=== PATIENT | female | born 1970 | race Caucasian/White ===

== ENCOUNTER 2016-12-26 13:29 | Inpatient (IN) | payer OTHER ==
[~2016-12-26] VITALS: Ht 162.6 cm; Wt 74.2 kg
[~2016-12-26 13:29] MED LIST: AMBIEN CR12.5 MG PO; CLONAZEPAM1 MG PO; COLACE100 MG PO; CONCERTA36 MG PO; CYMBALTA60 MG PO; EXCEDRIN EXTRA1 EACH PO; NASONEX17 GM BOTH NARES; NEURONTIN800 MG PO; PROAIR HFA8.5 GM IH; TOPAMAX100 MG PO; TOPAMAX50 MG PO; ZUBSOLV 5.7-1.1 EACH SL; ZYRTEC10 M3 PO
[2016-12-26 14:39] LABS: EOSINOPHIL (%) 3.6 % (0-5); EOSINOPHIL COUNT 0.2 K/uL (0-0.3); HEMATOCRIT 36.8 % (36.0-46.0); IMMATURE GRANULOCYTE (%) 0.5 % (0.0-0.7); INSTRUMENT ABS NEUTROPHIL CT 2.1 K/uL; LYMPHOCYTE COUNT 3.1 K/uL (1.0-2.8); MCH 29.6 PG (29.0-34.0); MCHC 33.4 G/DL (30.0-36.0); MCV 88.7 FL (83-99); MEAN PLAT.VOLUME 10.6 uM^3 (9.5-12.4); MONOCYTE (%) 11.4 % (3-12); MONOCYTE COUNT 0.7 K/uL (0-0.8); NEUTROPHIL (%) 33.8 % (45-76); NEUTROPHIL COUNT 2.1 K/uL (1.8-6.4); PLATELET COUNT 159 K/uL (156-360); RBC DIS.WIDTH-CV 12.5 % (11.8-14.6); RBC DIS.WIDTH-SD 40.6 % (39-53); RED BLOOD COUNT 4.15 M/uL (3.80-5.20); WHITE BLOOD COUNT 6.1 K/uL (4.1-10.2)
[2016-12-26 14:47] LABS: CHLORIDE 107 mEq/L (99-109); POTASSIUM 3.6 mEq/L (3.7-5.4); SODIUM 144 mEq/L (136-147)
[2016-12-26 14:49] LABS: GLUCOSE 53 mg/dL (70-99)
[2016-12-26 14:51] LABS: ANION GAP 12 MEQ/L (2-14); TOTAL BILIRUBIN 0.5 mg/dL (0.0-1.0)
[2016-12-26 14:52] LABS: SERUM ETHYL ALCOHOL 108 mg/dL
[2016-12-26 14:53] LABS: GFR ESTIMATE (CALCULATED) > 59 mL/min/
[2016-12-26 14:54] LABS: ALKALINE PHOSPHATASE 77 IU/L (3-129)
[2016-12-26 14:55] LABS: UREA NITROGEN (BUN) 23 mg/dL (9-23)
[2016-12-26 14:56] LABS: SALICYLATE < 5.0 MG/DL (15-30)
[2016-12-26 15:03] LABS: QUANTITATIVE HCG < 4.0 MIU/ML
[2016-12-26 17:07] LABS: POINT-OF-CARE METER ID UU13113702
[2016-12-26 17:09] LABS: ADD MIUA? YES; BILIRUBIN NEGATIVE; BLOOD NEGATIVE; COLOR YELLOW ((YELLOW)); GLUCOSE (STRIP) NEGATIVE; KETONES 80; LEUKOCYTES TRACE; NITRITE NEGATIVE; PROTEIN (STRIP) 30; SPECIFIC GRAVITY 1.025 (1.000-1.030)
[2016-12-26 17:20] LABS: ADD MEDTOX COMMENT Y; AMPHETAMINE NEGATIVE (500 ng/mL); BARBITURATES NEGATIVE (200 ng/mL); BENZODIAZEPINES PRESUMPTIVE POSITIVE (150 ng/mL); COCAINE NEGATIVE (150 ng/mL); INTERNAL CONTROLS VALID? YES; METHADONE NEGATIVE (200 ng/mL); METHAMPHETAMINE NEGATIVE (500 ng/mL); OPIATES (MORPHINE) NEGATIVE (100 ng/mL); OXYCODONE NEGATIVE (100 ng/mL); PHENCYCLIDINE NEGATIVE (25 ng/mL); PROPOXYPHENE NEGATIVE (300 ng/mL); THC CANNABINOIDS NEGATIVE (50 ng/mL); TRICYCLIC ANTIDEPRESSANTS PRESUMPTIVE POSITIVE (300 ng/mL)
[2016-12-26 17:23] LABS: BACTERIA NONE SEEN /HPF; EPITHELIAL CELLS RARE /HPF; MUCUS TRACE /LPF; UCUL ADDED? NO
[2016-12-26 17:50] LABS: BENZODIAZEPINES, URINE SCREEN POSITIVE (200 ng/mL)
[2016-12-26 18:52] LABS: POINT-OF-CARE METER ID UU13113702
[2016-12-26 19:06] VITALS: BP 113/71
[2016-12-26 19:41] VITALS: BP 113/71
[2016-12-26] MEDS ORDERED: SUBOXONE 8 MG-1 EAC2 PO (20:51)
[2016-12-26] MEDS ORDERED: ZOLOFT100 MG PO (20:52)
[2016-12-26] MEDS ORDERED: RITALIN10 MG PO (20:53)
[2016-12-26] MEDS ORDERED: GABAPENTIN800 MG PO (20:53)
[2016-12-26] MEDS ORDERED: KLONOPIN1 MG PO (20:55)
[2016-12-27 07:51] VITALS: BP 109/59
[2016-12-27 15:45] VITALS: BP 110/55
[2016-12-28 07:58] VITALS: BP 116/57
[2016-12-28 15:26] VITALS: BP 97/58
[2016-12-29 07:24] VITALS: BP 105/53
[2016-12-29 15:32] VITALS: BP 96/50
[2016-12-30 07:33] VITALS: BP 99/56
[2016-12-30 16:28] VITALS: BP 108/61
[2016-12-31 07:57] VITALS: BP 107/51
[2016-12-31] MEDS ORDERED: SERTRALINE HCL100 MG PO (10:56)
[2016-12-31] MEDS ORDERED: TRIAMCINOLONE A30 GM TP (10:56)
[2016-12-31] MEDS ORDERED: RETIN-A 0.1%20 GM TP (10:56)
[2016-12-31] MEDS ORDERED: BUSPAR10 MG PO (10:56)
[2016-12-31] MEDS ORDERED: TRAZODONE HCL50 MG PO (10:56)
[2016-12-31] MEDS ORDERED: ZOLOFT100 MG PO (11:17)
== END 2016-12-31 12:58 | disposition home or self-care (01) | DRG 885 ==
LOC: EME 13:29 → EDOF 16:00 → 1WEST 16:00
PROVIDERS: Emergency Medicine; Psychiatry & Neurology Psychiatry
DX: F32.2 Major depressive disorder, single episode, severe without psychotic features (principal); F11.10 Opioid abuse, uncomplicated; Z72.89 Other problems related to lifestyle; R45.851 Suicidal ideations; E16.2 Hypoglycemia, unspecified; F17.200 Nicotine dependence, unspecified, uncomplicated
CPT/HCPCS: 80053; 81003; 82948; 84702; 84999; 85025; 87086; 90837; 97150 GO; 97165 GO; 99281; 99284; G0480; J0571; Q0177

== ENCOUNTER 2017-05-07 13:40 | Emergency (ER) | payer OTHER ==
[~2017-05-07] VITALS: Ht 165.1 cm; Wt 71.2 kg
[~2017-05-07 13:40] MED LIST changes: +BUSPAR10 MG PO; +GABAPENTIN800 MG PO; +KLONOPIN1 MG PO; +RETIN-A 0.1%20 GM TP; +RITALIN10 MG PO; +SERTRALINE HCL100 MG PO; +SUBOXONE 8 MG-1 EAC2 PO; +TRAZODONE HCL50 MG PO; +TRIAMCINOLONE A30 GM TP; +ZOLOFT100 MG PO
[2017-05-07] MEDS ORDERED: ERYTHROMYC1 APPLICAT LEFT EYE (14:54)
[2017-05-07 15:00] VITALS: BP 126/87
== END 2017-05-07 15:00 | disposition home or self-care (01) ==
LOC: EME 13:40
DX: B80 Enterobiasis (principal); H10.9 Unspecified conjunctivitis; S20.469A Insect bite (nonvenomous) of unspecified back wall of thorax, initial encounter; W57.XXXA Bitten or stung by nonvenomous insect and other nonvenomous arthropods, initial encounter; J45.909 Unspecified asthma, uncomplicated; F42.9 Obsessive-compulsive disorder, unspecified; F17.200 Nicotine dependence, unspecified, uncomplicated; Z88.1 Allergy status to other antibiotic agents
CPT/HCPCS: 99281; 99283

== ENCOUNTER 2017-05-21 17:14 | Emergency (ER) | payer OTHER ==
[~2017-05-21] VITALS: Ht 162.6 cm; Wt 70.2 kg
[~2017-05-21 17:14] MED LIST changes: +ERYTHROMYC1 APPLICAT LEFT EYE
[2017-05-21 17:53] LABS: HEMATOCRIT 37.3 % (36.0-46.0); MCH 29.3 PG (29.0-34.0); MCHC 33.5 G/DL (30.0-36.0); MCV 87.4 FL (83-99); MEAN PLAT.VOLUME 9.5 uM^3 (9.5-12.4); PLATELET COUNT 229 K/uL (156-360); RBC DIS.WIDTH-CV 12.8 % (11.8-14.6); RBC DIS.WIDTH-SD 39.7 % (39-53); RED BLOOD COUNT 4.27 M/uL (3.80-5.20); WHITE BLOOD COUNT 7.4 K/uL (4.1-10.2)
[2017-05-21 18:01] LABS: CHLORIDE 109 mEq/L (99-109); POTASSIUM 3.3 mEq/L (3.7-5.4); SODIUM 142 mEq/L (136-147)
[2017-05-21 18:03] LABS: GLUCOSE 84 mg/dL (70-99)
[2017-05-21 18:04] LABS: ANION GAP 12 MEQ/L (2-14)
[2017-05-21 18:06] LABS: SERUM ETHYL ALCOHOL 92 mg/dL
[2017-05-21 18:07] LABS: GFR ESTIMATE (CALCULATED) > 59 mL/min/
[2017-05-21 18:08] LABS: UREA NITROGEN (BUN) 8 mg/dL (9-23)
[2017-05-21 18:15] LABS: QUANTITATIVE HCG < 4.0 MIU/ML
[2017-05-22 01:33] LABS: THC CANNABINOIDS NEGATIVE (50 ng/mL)
[2017-05-22 01:34] LABS: ADD MEDTOX COMMENT Y; AMPHETAMINE NEGATIVE (500 ng/mL); BARBITURATES NEGATIVE (200 ng/mL); BENZODIAZEPINES PRESUMPTIVE POSITIVE (150 ng/mL); COCAINE NEGATIVE (150 ng/mL); INTERNAL CONTROLS VALID? YES; METHADONE NEGATIVE (200 ng/mL); METHAMPHETAMINE NEGATIVE (500 ng/mL); OPIATES (MORPHINE) NEGATIVE (100 ng/mL); OXYCODONE NEGATIVE (100 ng/mL); PHENCYCLIDINE NEGATIVE (25 ng/mL); PROPOXYPHENE NEGATIVE (300 ng/mL); TRICYCLIC ANTIDEPRESSANTS NEGATIVE (300 ng/mL)
[2017-05-22 02:48] LABS: BENZODIAZEPINES, URINE SCREEN POSITIVE (200 ng/mL)
[2017-05-22 11:53] VITALS: BP 101/65
== END 2017-05-22 11:59 ==
LOC: EME 17:14
DX: F31.4 Bipolar disorder, current episode depressed, severe, without psychotic features (principal); F19.10 Other psychoactive substance abuse, uncomplicated; R45.851 Suicidal ideations; F10.10 Alcohol abuse, uncomplicated; J45.909 Unspecified asthma, uncomplicated; Z91.5 Personal history of self-harm; Z85.44 Personal history of malignant neoplasm of other female genital organs; F17.200 Nicotine dependence, unspecified, uncomplicated; Z88.0 Allergy status to penicillin; Z88.8 Allergy status to other drugs, medicaments and biological substances
CPT/HCPCS: 80048; 84702; 84999; 85027; 90837; 99281; 99285; G0480; J2310

== ENCOUNTER 2017-06-27 09:05 | Emergency (ER) | payer OTHER ==
[~2017-06-27] VITALS: Ht 165.1 cm; Wt 67.1 kg
[2017-06-27 09:49] LABS: BASOPHIL (%) 0.8 % (0-1); EOSINOPHIL (%) 0.2 % (0-5); HEMATOCRIT 44.1 % (36.0-46.0); HEMOGLOBIN 14.8 G/DL (11.9-15.5); IMMATURE GRANULOCYTE (%) 0.2 % (0.0-0.7); LYMPHOCYTE (%) 41.8 % (15-42); LYMPHOCYTE COUNT 2.1 K/uL (1.0-2.8); MCHC 33.6 G/DL (30.0-36.0); MCV 86.5 FL (83-99); MONOCYTE (%) 4.8 % (3-12); MONOCYTE COUNT 0.2 K/uL (0-0.8); NEUTROPHIL (%) 52.2 % (45-76); NEUTROPHIL COUNT 2.6 K/uL (1.8-6.4); PLATELET COUNT 250 K/uL (156-360); RBC DIS.WIDTH-CV 13.1 % (11.8-14.6)
[2017-06-27 09:56] LABS: ALBUMIN 3.9 g/dL (3.2-4.8); CHLORIDE 101 mEq/L (99-109); POTASSIUM 3.7 mEq/L (3.7-5.4); SODIUM 140 mEq/L (136-147)
[2017-06-27 09:57] LABS: MAGNESIUM 2.1 mg/dL (1.3-2.7)
[2017-06-27 09:58] LABS: GLUCOSE 96 mg/dL (70-99)
[2017-06-27 09:59] LABS: TOTAL PROTEIN 6.7 g/dL (6.4-8.3)
[2017-06-27 10:00] LABS: TOTAL BILIRUBIN 0.3 mg/dL (0.0-1.0)
[2017-06-27 10:01] LABS: SERUM ETHYL ALCOHOL 256 mg/dL
[2017-06-27 10:02] LABS: CREATININE 0.6 mg/dL (0.6-1.3); GFR ESTIMATE (CALCULATED) > 59 mL/min/
[2017-06-27 10:03] LABS: ALKALINE PHOSPHATASE 106 IU/L (3-129)
[2017-06-27 10:04] LABS: AST (GOT) 33 IU/L (2-34); UREA NITROGEN (BUN) 15 mg/dL (9-23)
[2017-06-27 10:06] LABS: ACETAMINOPHEN (TYLENOL) < 10 mcg/mL (10-30); ALT (GPT) 20 IU/L (3-49); SALICYLATE < 5.0 MG/DL (15-30)
[2017-06-27 10:12] LABS: QUANTITATIVE HCG < 4.0 MIU/ML
[2017-06-27 11:10] LABS: PHENCYCLIDINE NEGATIVE (25 ng/mL); THC CANNABINOIDS NEGATIVE (50 ng/mL)
[2017-06-27 11:11] LABS: AMPHETAMINE NEGATIVE (500 ng/mL); BARBITURATES NEGATIVE (200 ng/mL); BENZODIAZEPINES NEGATIVE (150 ng/mL); BUPRENORPHINE NEGATIVE (10 ng/mL); COCAINE NEGATIVE (150 ng/mL); METHADONE NEGATIVE (200 ng/mL); METHAMPHETAMINE NEGATIVE (500 ng/mL); OPIATES (MORPHINE) NEGATIVE (100 ng/mL); OXYCODONE NEGATIVE (100 ng/mL); PROPOXYPHENE NEGATIVE (300 ng/mL); TRICYCLIC ANTIDEPRESSANTS NEGATIVE (300 ng/mL)
[2017-06-27] MEDS ORDERED: LIBRIUM25 MG PO (16:34)
[2017-06-27 16:56] VITALS: BP 129/62
== END 2017-06-27 17:37 | disposition home or self-care (01) ==
LOC: EME 09:05
PROVIDERS: Emergency Medicine
DX: F10.20 Alcohol dependence, uncomplicated (principal); Y90.8 Blood alcohol level of 240 mg/100 ml or more; F42.9 Obsessive-compulsive disorder, unspecified; J45.909 Unspecified asthma, uncomplicated; F17.200 Nicotine dependence, unspecified, uncomplicated; Z85.44 Personal history of malignant neoplasm of other female genital organs; Z88.0 Allergy status to penicillin
CPT/HCPCS: 80053; 83735; 84702; 85025; 90837; 93005; 99281; 99285; G0480; J1630

== ENCOUNTER 2018-01-20 22:31 | Emergency (ER) | payer OTHER ==
[~2018-01-20] VITALS: Ht 157.5 cm; Wt 73.8 kg
[~2018-01-20 22:31] MED LIST changes: +LIBRIUM25 MG PO
[2018-01-20] MEDS ORDERED: ALBENZA200 MG PO (22:55)
[2018-01-20] MEDS ORDERED: CLINDAMYCIN HC300 MG PO (22:55)
[2018-01-20 23:26] VITALS: BP 142/89
== END 2018-01-20 23:50 | disposition home or self-care (01) ==
LOC: EME 22:31
DX: K11.20 Sialoadenitis, unspecified (principal); B80 Enterobiasis; J45.909 Unspecified asthma, uncomplicated; Z85.44 Personal history of malignant neoplasm of other female genital organs; F17.200 Nicotine dependence, unspecified, uncomplicated; F42.9 Obsessive-compulsive disorder, unspecified; Z88.0 Allergy status to penicillin
CPT/HCPCS: 99281; 99284